=== PATIENT | female | born 1975 | race African-American/Black ===

== ENCOUNTER 2019-08-25 19:44 | Emergency (ER) | payer MEDICARE ==
[~2019-08-25] VITALS: Ht 172.7 cm; Wt 75.0 kg
[2019-08-25] MEDS ORDERED: FAMOTIDINE 20MG/2ML VIAL IV STA (22:55)
[2019-08-25] MEDS ORDERED: ONDANSETRON HCL 4MG/2ML INJ IV STA (22:55)
[2019-08-25] MEDS ORDERED: SODIUM CHLORIDE 0.9% 1,000 ML IV ONE (22:55)
[2019-08-25 23:41] LABS: BASOPHILS % 1.3 % (0.0-2.0); EOSINOPHILS % 0.5 % (0.0-5.0); HEMATOCRIT. 22.4 % (36.0-48.0); LYMPHOCYTES % 44.5 % (20.0-50.0); MEAN CORPUSCULAR HEMOGLOBIN 13.9 pg (28.0-32.0); MEAN PLATELET VOLUME 8.5 fl (7.4-10.4); MONOCYTES % 3.6 % (2.0-8.0); NEUTROPHILS % 50.1 % (40.0-76.0); PLATELET 778 x1000/uL (130-400); RED BLOOD CELL COUNT 4.07 mill/uL (4.2-5.4); RED CELL DISTRIBUTION WIDTH 24.3 % (11.6-14.6)
[2019-08-25] MEDS ORDERED: KETOROLAC 15MG/ML VIAL IV ONE (23:45)
[2019-08-25 23:48] LABS: HEMOGLOBIN. 5.7 g/dL (12.0-16.0)
[2019-08-25 23:49] LABS: PLATELET ESTIMATE MARKEDLY INCREASED
[2019-08-26 00:47] LABS: CHLORIDE 111 mEq/L (98-107)
[2019-08-26 01:51] LABS: CLARITY URINE CLEAR (CLEAR); COLOR URINE YELLOW (YELLOW); KETONES URINE NEGATIVE (NEGATIVE); LEUKOCYTE ESTERASE URINE NEGATIVE (NEGATIVE); NITRITE URINE NEGATIVE (NEGATIVE); OCCULT BLOOD URINE NEGATIVE (NEGATIVE); PH URINE 5.5 (4.5-8.0); PROTEIN URINE TRACE (NEGATIVE); SPECIFIC GRAVITY URINE 1.016 (1.005-1.030); UROBILINOGEN URINE 0.2 E.U./dL (0.2-1.0)
[2019-08-26 03:27] VITALS: BP 115/82
== END 2019-08-26 03:27 | disposition home or self-care (01) ==
LOC: ER 19:56
DX: R10.13 Epigastric pain (principal); D64.9 Anemia, unspecified; F17.210 Nicotine dependence, cigarettes, uncomplicated; Z71.6 Tobacco abuse counseling
CPT/HCPCS: 36415; 80053; 81003; 83605; 83690; 85025; 96361; 96374; 96375; 99283; 99406; J1885; J2405; J3490; J7030

== ENCOUNTER 2023-10-28 17:09 | Emergency (ER) | payer MEDICAID, MEDICARE ==
[~2023-10-28] VITALS: Ht 172.7 cm; Wt 82.0 kg
[2023-10-28 17:24] VITALS: O2SAT 100
[2023-10-28] MEDS: IBUPROFEN 400MG TABLET PO ONE (22:12)
[2023-10-28 22:19] VITALS: TEMP 98.3
[2023-10-28] MEDS: ACETAMINOPHEN 325MG TABLET PO NR (22:19)
[2023-10-28 22:53] VITALS: BP 195/109; PULSE 96; RESP 18
== END 2023-10-28 22:58 | disposition home or self-care (01) ==
LOC: ER 17:09
DX: M54.9 Dorsalgia, unspecified (principal); M79.604 Pain in right leg; I10 Essential (primary) hypertension
CPT/HCPCS: 99283